=== PATIENT | female | born 1955 | race Caucasian/White ===

== ENCOUNTER 2023-01-21 08:37 | Inpatient (IN) | payer OTHER ==
[2023-01-21 08:52] VITALS: BMI 27.4
[2023-01-21] MEDS ORDERED: morphine SULFATE 4 MG/ML VIAL IVPUSH ONE (09:36)
[2023-01-21] MEDS ORDERED: ACETAMINOPHEN 1000 MG/100 ML BAG IVPB ONE (09:54)
[2023-01-21] MEDS ORDERED: morphine SULFATE 4 MG/ML VIAL ONE (09:55)
[2023-01-21 10:28] LABS: BASO % 0.9 % (0-2.0); EOS % 0.8 % (0-4.5); HEMATOCRIT 34.4 % (32.4-45.2); HEMOGLOBIN 11.1 GM/dL (10.7-15.3); LYMPH % 9.5 % (8-40); MCHC 32.4 g/dl (32.0-36.0); MEAN CELL VOLUME 60.7 fl (80-96); MEAN PLT VOLUME 8.2 fl (7.5-11.1); MONO % 5.7 % (3.8-10.2); NEUT % 83.1 % (42.8-82.8); PLATELET COUNT 381 10^3/uL (134-434); RBC 5.66 M/mm3 (3.60-5.2); RDW 17.4 % (11.6-15.6); WHITE BLOOD COUNT 7.7 K/mm3 (4.0-10.0)
[2023-01-21 10:29] LABS: MCH 19.6 pg (25.7-33.7)
[2023-01-21] MEDS ORDERED: SODIUM CHLORIDE 0.9% 500 ML INFUS.BAG IV ONE (10:33)
[2023-01-21 10:34] LABS: INR 1.02 (0.83-1.09); PROTHROMBIN TIME (PATIENT) 11.8 SEC (9.7-13.0)
[2023-01-21 10:37] LABS: ACTIVATED PTT 32.2 SECONDS (25.2-36.5)
[2023-01-21 10:47] LABS: ANISOCYTOSIS 2+; MACROCYTOSIS 0
[2023-01-21] MEDS ORDERED: ACETAMINOPHEN INJECTION 100 ML IVPB ONE (10:54)
[2023-01-21 10:57] LABS: ALBUMIN 4.2 g/dl (3.4-5.0); CALCIUM 9.7 mg/dL (8.5-10.1)
[2023-01-21 11:00] LABS: CREATININE 1.1 mg/dL (0.55-1.3)
[2023-01-21 11:02] LABS: TOT PROT 7.6 g/dl (6.4-8.2)
[2023-01-21] MEDS ORDERED: SODIUM CHLORIDE 1,000 ML IV SCH (13:45)
[2023-01-21] MEDS ORDERED: ACETAMINOPHEN 1000 MG/100 ML BAG IVPB PRN (13:45)
[2023-01-21] MEDS ORDERED: KCL 10 MEQ IVPB 10 MEQ/100 ML INFUS.BAG IVPB SCH (14:15)
[2023-01-21 14:19] VITALS: RESP 20
[2023-01-21] MEDS ORDERED: ATENOLOL 50 MG TABLET (FP) PO SCH (22:00)
[2023-01-21 23:13] VITALS: BP 157/89; PULSE 78; TEMP 98.7
[2023-01-22] MEDS ORDERED: CALCITRIOL 0.25 MCG CAPSULE (FP) PO SCH (10:00)
[2023-01-22] MEDS ORDERED: LOSARTAN POTASSIUM 50 MG TABLET PO SCH (10:00)
== END 2023-01-22 01:30 | disposition short-term general hospital (02) | DRG 536 ==
LOC: JER 08:37 → JERBED 10:38 → J6S 14:52
PROVIDERS: ADMIT Internal Medicine; ATTEND Internal Medicine
DX: S72.012A Unspecified intracapsular fracture of left femur, initial encounter for closed fracture (principal); W01.0XXA Fall on same level from slipping, tripping and stumbling without subsequent striking against object, initial encounter; Y92.098 Other place in other non-institutional residence as the place of occurrence of the external cause; I10 Essential (primary) hypertension; D56.9 Thalassemia, unspecified; E87.6 Hypokalemia
CPT/HCPCS: 0241U-QW; 36415; 72170-TC-FY; 73502-TC-LT-FY; 73552-TC-LT-FY; 80053; 85025; 85610; 85730; 86850; 86900; 86901; 93005; 93010; 99285-25